=== PATIENT | female | born 1990 | race Caucasian/White ===

== ENCOUNTER 2016-12-05 07:03 | Inpatient (IN) | payer BC ==
[2016-12-05] MEDS ORDERED: Acetaminophen 325 MG Tab PO PRN (07:30)
[2016-12-05] MEDS ORDERED: fentaNYL 100 MCG/2 ML SDV IVPUSH PRN (07:30)
[2016-12-05] MEDS ORDERED: Calcium Carbonate 500 MG Tab.Chew PO PRN (07:30)
[2016-12-05] MEDS ORDERED: Ondansetron 4 MG/2 ML SDV IV PRN (07:30)
[2016-12-05] MEDS ORDERED: Sodium Chloride 0.9% 10 ML Syringe FLUSH PRN (07:30)
[2016-12-05] MEDS ORDERED: Misoprostol 50 MCG (1/2 of 100 MCG) Tab VAG ONE ×2 (07:32→12:12)
--- NOTE | 2016-12-05 07:56 | PCM.LDHP ---
L&D History of Present Illness - General Date of Service: 12/05/16 Admit Problem/Dx: Patient Status Order with Admit Dx/Problem 12/05/16 07:30 Patient Status [ADT] Routine Admission Diagnosis/Problem Admission Diagnosis/Problem Source of Information: Patient History Limitations: Reports: No Limitations - Related Data Allergies/Adverse Reactions: Allergies Allergy/AdvReac Type Severity Reaction Status Date / Time No Known Allergies Allergy Verified 11/30/16 05:48 Home Medications: Home Meds Prenat Vit Comb.10/Iron/Fa/Dha [Vitafol-OB + DHA] 1 each PO DAILY 11/30/16 [ History] Past Medical History : 2 Para: 1 Other OB/BYN History: SHANTHI-12/01/2016 Social & Family History - Tobacco Use Smoking Status *Q: Never Smoker Second Hand Smoke Exposure: No - Caffeine Use Caffeine Use: Reports: Coffee Other Caffeine Use: 1 cup per day - Recreational Drug Use Recreational Drug Use: No H&P Review of Systems - Review of Systems: Review Of Systems: See Below General: Reports: No Symptoms HEENT: Reports: No Symptoms Pulmonary: Reports: No Symptoms Cardiovascular: Reports: No Symptoms Gastrointestinal: Reports: No Symptoms Genitourinary: Reports: No Symptoms Musculoskeletal: Reports: No Symptoms Skin: Reports: No Symptoms Psychiatric: Reports: No Symptoms Neurological: Reports: No Symptoms Hematologic/Lymphatic: Reports: No Symptoms Immunologic: Reports: No Symptoms L&D Exam - Exam Exam: See Below - Vital Signs Weight: 75.75 kg - OB Specific Contraction Intensity: Mild Movement: Active Heart Tones: Present Heart Rate (FHR) Variability: Moderate (6-25 bmp) Presentation: Vertex Estimated Weight: 6.5lbs - Rodriguez Score Rodriguez Score Cervix Position: Posterior Rodriguez Score Consistency: Soft Rodriguez Score Effacement: 51-70% Rodriguez Score Dilation: 1-2 cm Rodriguez Score Infant's Station: -2 Rodriguze Score Total: 6 - Exam General: Alert, Oriented HEENT: PERRLA, Conjunctiva Clear, EACs Clear, EOMI, Hearing Intact, Mucosa Moist & [place], Nares Patent, Normal Nasal Septum, Posterior Pharynx Clear, TMs Clear Neck: Supple, Trachea Midline Lungs: Clear to Auscultation, Normal Respiratory Effort Cardiovascular: Regular Rate, Regular Rhythm GI/Abdominal Exam: Normal Bowel Sounds, Soft, Non-Tender, No Organomegaly, No Distention, No Abnormal Bruit, No Mass, Pelvis Stable Rectal Exam: Normal Exam, Normal Rectal Tone Genitourinary: Normal external exam, Normal bimanual exam, Normal speculum exam Back Exam: Normal Inspection, Full Range of Motion Extremities: Normal Inspection, Normal Range of Motion, Non-Tender, No Pedal Edema, Normal Capillary Refill Skin: Warm, Dry, Intact Neurological: Cranial Nerves Intact, Reflexes Equal Bilateral Psychiatric: Alert, Normal Affect, Normal Mood - Patient Data Lab Results Last 24 hrs: Laboratory Results - last 24 hr 12/05/16 12/05/16 12/05/16 Range/Units 07:15 07:15 07:19 WBC 10.6 (4.5-11.0) K/uL RBC 4.18 (3.30-5.50) M/uL Hgb 11.8 L (12.0-15.0) g/dL Hct 35.0 L (36.0-48.0) % MCV 84 (80-98) fL MCH 28 (27-31) pg MCHC 34 (32-36) % Plt Count 221 (150-400) K/uL Neut % (Auto) 73 H (36-66) % Lymph % (Auto) 20 L (24-44) % [place] % (Auto) 6 (2-6) % Eos % (Auto) 1 L (2-4) % Baso % (Auto) 0 (0-1) % Urine Color Yellow Urine Appearance Cloudy Urine pH 7.0 (4.5-8.0) Ur Specific [place] 1.015 (1.008-1.030) Urine Protein Negative (NEGATIVE) mg/dL Urine Glucose (UA) Normal (NEGATIVE) mg/dL Urine Ketones Negative (NEGATIVE) mg/dL Urine Occult Blood Negative (NEGATIVE) Urine Nitrite Negative (NEGATIVE) Urine Bilirubin Negative (NEGATIVE) Urine Urobilinogen Normal (NORMAL) mg/dL Ur Leukocyte Esterase Large (NEGATIVE) Urine RBC 0-5 (0-5) Urine WBC 5-10 H (0-5) Ur Epithelial Cells Many Amorphous Sediment Many Urine Bacteria Moderate Urine Mucus Rare Urine Opiates Screen Negative (NEGATIVE) Ur Oxycodone Screen Negative (NEGATIVE) Urine Methadone Screen Negative (NEGATIVE) Ur Propoxyphene Screen Negative (NEGATIVE) Ur Barbiturates Screen Negative (NEGATIVE) Ur Tricyclics Screen Negative (NEGATIVE) Ur Phencyclidine Scrn Negative (NEGATIVE) Ur Amphetamine Screen Negative (NEGATIVE) U Methamphetamines Scrn Negative (NEGATIVE) Urine MDMA Screen Negative (NEGATIVE) U Benzodiazepines Scrn Negative (NEGATIVE) U Cocaine Metab Screen Negative (NEGATIVE) U Marijuana (THC) Screen Negative (NEGATIVE) Result Diagrams: 12/05/16 07:19 - Problem List (1) SNOMED Code(s): 44377728 ICD Code: Z34.90 - ENCNTR FOR SUPRVSN OF NORMAL , UNSP, UNSP TRIMESTER Status: Acute Current Visit: Yes Qualifiers: Weeks of gestation: 40 weeks Qualified Code(s): Z3A.40 - 40 weeks gestation of (2) Elective induction of labor planned SNOMED Code(s): 230482737 ICD Code: [id number] - Status: Acute Current Visit: Yes Problem List Initiated/Reviewed/Updated: Yes Orders Last 24hrs: Active Orders 24 hr Category Date Time Status Patient Status [ADT] Routine ADT 12/05/16 07:30 Active Communication Order [RC] ASDIRECTED Care 12/05/16 07:30 Active Heart Tones [RC] PER UNIT ROUTINE Care 12/05/16 07:30 Active May Shower [RC] ASDIRECTED Care 12/05/16 07:30 Active Notify Provider Vital Signs [RC] PRN Care 12/05/16 07:30 Active Notify Provider [RC] PRN Care 12/05/16 07:30 Active OB Check [OM.PC] Click to Edit Care 12/05/16 07:11 Ordered Up ad [place] [RC] ASDIRECTED Care 12/05/16 07:30 Active Vital Signs [RC] PER UNIT ROUTINE Care 12/05/16 07:30 Active Regular Diet [DIET] Diet 12/05/16 Breakfast Active Acetaminophen [Tylenol] Med 12/05/16 07:30 Active 650 mg PO Q4H PRN Calcium Carbonate [Tums] Med 12/05/16 07:30 Active 1,000 mg PO Q2H PRN Ondansetron [Zofran] Med 12/05/16 07:30 Active 4 mg IV Q4H PRN Sodium Chloride 0.9% [Saline Flush] Med 12/05/16 07:30 Active 10 ml FLUSH ASDIRECTED PRN fentaNYL [Sublimaze] Med 12/05/16 07:30 Active 100 mcg IVPUSH Q1H PRN Saline Lock Insert [OM.PC] Routine Oth 12/05/16 07:30 Ordered Resuscitation Status Routine Resus Stat 12/05/16 07:30 Ordered Medication Orders Acetaminophen (Tylenol) 650 mg PO Q4H PRN PRN Reason: Pain (Mild 1-3) and fever Calcium Carbonate/Glycine (Tums) 1,000 mg PO Q2H PRN PRN Reason: Indigestion Fentanyl (Sublimaze) 100 mcg IVPUSH Q1H PRN PRN Reason: Pain (moderate 4-6) Ondansetron HCl (Zofran) 4 mg IV Q4H PRN PRN Reason: Nausea/Vomiting Sodium Chloride (Saline Flush) 10 ml FLUSH ASDIRECTED PRN PRN Reason: Keep Vein Open Assessment/Plan Comment:: 12/05/2016 25 yo at 40 4/7 gestational weeks here for an elective induction SVE-2-3/50/-2 Bishops Score-6 Cytotec 50mcg placed vaginally Plan- Monitor for active labor Up and about as tolerated Intermittent Monitoring Pain management per patient request Patient may eat regular diet Anticipate and plan for a vaginal delivery
[2016-12-05] MEDS ORDERED: Misoprostol 25 MCG (1/4 of 100 MCG) Tab ONE (12:13)
--- NOTE | 2016-12-05 12:26 | PCM.PNLD ---
Labor Progress Note - VS & Meds Vital Signs: Last Vital Signs Temp 37.1 C 12/05/16 08:15 Pulse 90 12/05/16 08:15 Resp 16 12/05/16 07:20 BP 122/85 12/05/16 08:15 Pulse Ox 94 L 12/05/16 07:20 Active Medications: Current Medications Acetaminophen (Tylenol) 650 mg PO Q4H PRN PRN Reason: Pain (Mild 1-3) and fever Last Admin: 12/05/16 07:55 Dose: 650 mg Calcium Carbonate/Glycine (Tums) 1,000 mg PO Q2H PRN PRN Reason: Indigestion Fentanyl (Sublimaze) 100 mcg IVPUSH Q1H PRN PRN Reason: Pain (moderate 4-6) Misoprostol (Cytotec) 25 mcg VAG ONETIME ONE Stop: 12/05/16 12:13 Ondansetron HCl (Zofran) 4 mg IV Q4H PRN PRN Reason: Nausea/Vomiting Sodium Chloride (Saline Flush) 10 ml FLUSH ASDIRECTED PRN PRN Reason: Keep Vein Open Discontinued Medications Misoprostol (Cytotec) 50 mcg VAG ONETIME ONE Stop: 12/05/16 07:33 Last Admin: 12/05/16 07:45 Dose: 50 mcg Misoprostol (Cytotec) Confirm Administered Dose 25 mcg .ROUTE .STK-MED ONE Stop: 12/05/16 12:14 Last Admin: 12/05/16 12:18 Dose: Not Given - Uterine Contractions Uterine Monitoring Mode: External [place] Contraction Frequency (min): 2 Contraction Duration (sec): 60-120 Contraction Intensity: Moderate Uterine Resting Tone: Soft - Monitoring Heart Rate (FHR) Variability: Moderate (6-25 bmp) - Vaginal Exam Dilation (cm): 3 Effacement (Percent): 60 Station: 0 Cervical Position: Anterior Sterile Vaginal Exam Performed By: Bridgette Rojas Vaginal Exam Comment: Cytotec 25 mcg vaginally - Labor Progress (Free Text) Labor Progress: 12/05/2016 Patient progressing nicely. SVE-60/0 and now anterior Cytotec 25mcg placed vaginally Patient tolerating contractions with position change and breathing Plan- Continue to monitor for active labor Continue to monitor FHTs Continue up ad drew Pain management per patient request Anticipate and plan for a vaginal delivery
--- NOTE | 2016-12-05 12:36 | ANES ---
DATE OF SERVICE: 12/05/2016 INDICATIONS: This 25-year-old is in labor and I have been asked to do labor epidural. I discussed the risks and benefits to the patient. She signed an informed consent. DESCRIPTION OF PROCEDURE: She was placed in a sitting position on the edge of the bed. Her back was prepped with Betadine x3. At approximately L4-L5, I gave her a 2 mL of skin wheal of 1% Xylocaine and another 2 to 3 mL into the deeper tissue. I then placed a 17-gauge Tuohy needle into the epidural space at that level using a loss of resistance technique. I was unable to aspirate blood, fluid, or air from the epidural and I gave her a 6 mL bolus of 5 mL of 1.5% Xylocaine with epinephrine and 2 mL of preservative-free fentanyl. I then threaded an epidural catheter approximately 3 to 4 cm into the epidural space and removed the needle over the catheter. The catheter was brought up over left shoulder and taped securely in place. She was then placed on a ropivacaine infusion of 0.2% at 12 mL. This is all reviewed with the nurse in the room. The patient tolerated the procedure well. Currently, her vital signs are stable. Her color is pink. She is alert, oriented, shows no signs of complications. Anesthesia service will be called if they need further assistance. NAME OF PROCEDURE: Labor epidural. Rick Jeffries CRNA /[id number]
[2016-12-05] MEDS ORDERED: Ropivacaine 100 ML ONE (13:34)
[2016-12-05] MEDS ORDERED: fentaNYL 100 MCG/2 ML SDV ONE (13:34)
[2016-12-05] MEDS ORDERED: Lactated Ringers 1,000 ML IV ONE ×2 (16:36→17:45)
[2016-12-05] MEDS ORDERED: Lidocaine 1% 50 ML MDV ONE (16:46)
--- NOTE | 2016-12-05 16:46 | PCM.PNLD ---
Labor Progress Note - VS & Meds Vital Signs: Last Vital Signs Temp 37.2 C 12/05/16 12:15 Pulse 84 12/05/16 12:15 Resp 16 12/05/16 11:30 BP 131/83 12/05/16 12:15 Pulse Ox 94 L 12/05/16 07:20 Active Medications: Current Medications Acetaminophen (Tylenol) 650 mg PO Q4H PRN PRN Reason: Pain (Mild 1-3) and fever Last Admin: 12/05/16 07:55 Dose: 650 mg Calcium Carbonate/Glycine (Tums) 1,000 mg PO Q2H PRN PRN Reason: Indigestion Fentanyl (Sublimaze) 100 mcg IVPUSH Q1H PRN PRN Reason: Pain (moderate 4-6) Last Admin: 12/05/16 15:08 Dose: 50 mcg Lactated Ringer's (Ringers, Lactated) 1,000 mls @ 999 mls/hr IV .BOLUS ONE Stop: 12/05/16 17:36 Oxytocin/Sodium Chloride (Pitocin In Ns 20 Units/1,000 Ml) 20 unit in 1,000 mls @ 6 mls/hr IV TITRATE ANDRADE; 2 MUNITS/MIN PRN Reason: Protocol Lidocaine HCl (Xylocaine 1%) 100 ml INJECT ONETIME ONE Stop: 12/05/16 18:01 Ondansetron HCl (Zofran) 4 mg IV Q4H PRN PRN Reason: Nausea/Vomiting Sodium Chloride (Saline Flush) 10 ml FLUSH ASDIRECTED PRN PRN Reason: Keep Vein Open Discontinued Medications Fentanyl (Sublimaze) Confirm Administered Dose 100 mcg .ROUTE .STK-MED ONE Stop: 12/05/16 13:35 Oxytocin/Sodium Chloride (Pitocin In Ns 20 Units/1,000 Ml) 20 unit in 1,000 mls @ 2,997 mls/hr IV ONETIME ONE; 999 MUNITS/MIN PRN Reason: Protocol Stop: 12/05/16 12:41 Ropivacaine (Naropin 0.2%) Confirm Administered Dose 100 mls @ as directed .ROUTE .STK-MED ONE Stop: 12/05/16 13:35 Misoprostol (Cytotec) 50 mcg VAG ONETIME ONE Stop: 12/05/16 07:33 Last Admin: 12/05/16 07:45 Dose: 50 mcg Misoprostol (Cytotec) 25 mcg VAG ONETIME ONE Stop: 12/05/16 12:13 Last Admin: 12/05/16 12:15 Dose: 25 mcg Misoprostol (Cytotec) Confirm Administered Dose 25 mcg .ROUTE .STK-MED ONE Stop: 12/05/16 12:14 Last Admin: 12/05/16 12:18 Dose: Not Given - Uterine Contractions Uterine Monitoring Mode: External [place] Contraction Frequency (min): 1-2.5 Contraction Duration (sec): 70-80 Contraction Intensity: Moderate to Strong Uterine Resting Tone: Soft - Monitoring Heart Rate (FHR) Variability: Moderate (6-25 bmp) Accelerations: Present, 15x15 Strip Review: Category I - Vaginal Exam Dilation (cm): 4 Effacement (Percent): 60 Station: 0 Cervical Position: Anterior Sterile Vaginal Exam Performed By: Bridgette Rojas Vaginal Exam Comment: Fentanyl - Labor Progress (Free Text) Labor Progress: 12/05/2016 Patient alyce regularly SVE-4/60/0 Patient more uncomfortable and would like an epidural FHTs category one Plan- Continue monitor for more active labor Continue to monitor FHTs Patient may have an epidural Will start Pitocin per protocol Plan on AROM once comfortable Anticipate and plan for a vaginal delivery
[2016-12-05] MEDS ORDERED: ePHEDrine 50 MG/ML SDV ONE (17:12)
[2016-12-05] MEDS ORDERED: Naloxone 0.4 MG/ML SDV IVPUSH PRN (17:33)
[2016-12-05] MEDS ORDERED: diphenhydrAMINE 50 MG/ML SDV IVPUSH PRN (17:33)
[2016-12-05] MEDS ORDERED: ePHEDrine 50 MG/ML SDV IVPUSH PRN (17:33)
[2016-12-05] MEDS ORDERED: Lidocaine 1% 50 ML MDV INJECT ONE (18:00)
[2016-12-05] MEDS ORDERED: Lanolin 100% Cream 40 GM Tube TOP PRN (21:31)
[2016-12-05] MEDS ORDERED: Witch Hazel Medicated Pads 100/Jar TOP PRN (21:31)
[2016-12-05] MEDS ORDERED: Acetaminophen 325 MG Tab, 50 Tab Bulk Bottle PO PRN (21:31)
[2016-12-05] MEDS ORDERED: Acetaminophen/HYDROcodone 325-5 MG Tab PO PRN (21:31)
[2016-12-05] MEDS ORDERED: Benzocaine 20% Top Spray 56 GM Bottle TOP PRN (21:31)
[2016-12-05] MEDS ORDERED: Ibuprofen 200 MG Tab, 24 Tab Bulk Bottle PO PRN (21:31)
--- NOTE | 2016-12-05 21:46 | PCM.DEL ---
L & D Note - General Info Date of Service: 12/05/16 Mother's Due Date: 12/01/16 - Delivery Note Labor: Augmented by Oxytocin Cervical Ripening Method: Misoprostil Delivery Outcome: Livebirth Infant Delivery Method: Spontaneous Vaginal Delivery-Single Delivery Mode: Vacuum Extraction (times one pull with release) Presentation: Right Occiput Transverse (ROT) Nuchal Cord: None Anesthesia Type: Epidural Amniotic Fluid Description: Clear Episiotomy Type: None Laceration: 1st Degree, Perineal Suture type: Chromic Suture size: 3-0 Placenta: Intact, Spontaneous Cord: 3 Vessels Resuscitation Needed: No : Bulb Syringe, Stimulated, Warmed, [place] Used Score 1 min: 9 Score 5 min: 9 Score 10 min: 9 Second Stage Interventions: Reports: Encouragement Given, Pushing Effectively Delivery Comments (Free Text/Narrative):: 12/05/2016 25 yo @ 40 4/7 gestational weeks delivered a viable male infant vaginally with a one pull assist of a vacuum in ROT position at 2101 on 12/05/2016. APGARS , weight-7lbs 4.7oz, length-19.4inches, infant placed on mother abdomen on prewarmed blanket, infant stimulated, dried, bulb suctioned and began to cry vigorously and pink in color. Infants cord then double clamped and cut by provider. Placenta spontaneous, intact, with a 3 vessel cord. EBL- 300ml. Small first degree perineal laceration where old episiotomy scar was- repaired in usual fashion. No lacerations noted of the cervix, labia, vagina, or rectum. Infant now skin to skin with mother and both in stable condition. Vacuum Extractor Progress Note - Alternative Labor Strategies Considered Alternative Labor Strategies Considered:: Reports: Yes Strategies Considered:: Reports: Contraction Intensity Adequate, Position Changes Used to Facilitate Rotation & Descent, Empty Bladder, Rest Indications Considered:: Reports: Yes Indications:: Reports: Suspicion of Immediate or Potential Compromise Time Out:: Reports: Yes - Patient Prepared Patient Prepared:: Reports: Yes Informed Consent:: Reports: Yes Risks: Reports: Yes Risks Include:: Reports: Laceration, Shoulder Dystocia, Maternal Injury Anesthesia/Analgesia Adequate:: Reports: Yes - Probability of Success High Probability of Success:: Reports: Yes Weight Estimated:: Reports: AGA Patient Diabetic:: Reports: No Pelvis Adequate:: Reports: Yes Asynclitic:: Reports: No - Application Time Maximum Application Time & Number of Pop-Offs Predetermined:: Reports: Yes Vacuum Extraction: Successful (only one pull with release) - Exit Strategy Exit strategy available:: Reports: Yes and resuscitation teams readily available:: Reports: Yes - General Info Date of Service: 12/05/16 Admission Dx/Problem (Free Text): Patient Status Order with Admit Dx/Problem 12/05/16 07:30 Patient Status [ADT] Routine Admission Diagnosis/Problem Admission Diagnosis/Problem Functional Status: Reports: Pain Controlled - Review of Systems General: Reports: No Symptoms HEENT: Reports: No Symptoms Pulmonary: Reports: No Symptoms Cardiovascular: Reports: No Symptoms Gastrointestinal: Reports: No Symptoms Genitourinary: Reports: No Symptoms Musculoskeletal: Reports: No Symptoms Skin: Reports: No Symptoms Neurological: Reports: No Symptoms Psychiatric: Reports: No Symptoms - Patient Data Vitals - Most Recent: Last Vital Signs Temp 36.8 C 12/05/16 17:40 Pulse 80 12/05/16 18:45 Resp 16 12/05/16 11:30 BP 128/82 12/05/16 18:45 Pulse Ox 94 L 12/05/16 07:20 Weight - Most Recent: 75.75 kg Lab Results Last 24 Hours: Laboratory Results - last 24 hr 12/05/16 12/05/16 12/05/16 Range/Units 07:15 07:15 07:19 WBC 10.6 (4.5-11.0) K/uL RBC 4.18 (3.30-5.50) M/uL Hgb 11.8 L (12.0-15.0) g/dL Hct 35.0 L (36.0-48.0) % MCV 84 (80-98) fL MCH 28 (27-31) pg MCHC 34 (32-36) % Plt Count 221 (150-400) K/uL Neut % (Auto) 73 H (36-66) % Lymph % (Auto) 20 L (24-44) % [place] % (Auto) 6 (2-6) % Eos % (Auto) 1 L (2-4) % Baso % (Auto) 0 (0-1) % Sodium (140-148) mmol/L Potassium (3.6-5.2) mmol/L Chloride (100-108) mmol/L Carbon Dioxide (21-32) mmol/L Anion Gap (5.0-14.0) mmol/L BUN (7-18) mg/dL Creatinine (0.6-1.0) mg/dL Est Cr Clr Drug Dosing mL/min Estimated GFR (MDRD) (>60) Glucose (74-106) mg/dL Calcium (8.5-10.1) mg/dL Total Bilirubin (0.2-1.0) mg/dL AST (15-37) U/L ALT (12-78) U/L Alkaline Phosphatase (46-116) U/L Total Protein (6.4-8.2) g/dL Albumin (3.4-5.0) g/dL Globulin (2.3-3.5) g/dL Albumin/Globulin Ratio (1.2-2.2) Urine Color Yellow Urine Appearance Cloudy Urine pH 7.0 (4.5-8.0) Ur Specific [place] 1.015 (1.008-1.030) Urine Protein Negative (NEGATIVE) mg/dL Urine Glucose (UA) Normal (NEGATIVE) mg/dL Urine Ketones Negative (NEGATIVE) mg/dL Urine Occult Blood Negative (NEGATIVE) Urine Nitrite Negative (NEGATIVE) Urine Bilirubin Negative (NEGATIVE) Urine Urobilinogen Normal (NORMAL) mg/dL Ur Leukocyte Esterase Large (NEGATIVE) Urine RBC 0-5 (0-5) Urine WBC 5-10 H (0-5) Ur Epithelial Cells Many Amorphous Sediment Many Urine Bacteria Moderate Urine Mucus Rare Urine Opiates Screen Negative (NEGATIVE) Ur Oxycodone Screen Negative (NEGATIVE) Urine Methadone Screen Negative (NEGATIVE) Ur Propoxyphene Screen Negative (NEGATIVE) Ur Barbiturates Screen Negative (NEGATIVE) Ur Tricyclics Screen Negative (NEGATIVE) Ur Phencyclidine Scrn Negative (NEGATIVE) Ur Amphetamine Screen Negative (NEGATIVE) U Methamphetamines Scrn Negative (NEGATIVE) Urine MDMA Screen Negative (NEGATIVE) U Benzodiazepines Scrn Negative (NEGATIVE) U Cocaine Metab Screen Negative (NEGATIVE) U Marijuana (THC) Screen Negative (NEGATIVE) 12/05/16 Range/Units 07:19 WBC (4.5-11.0) K/uL RBC (3.30-5.50) M/uL Hgb (12.0-15.0) g/dL Hct (36.0-48.0) % MCV (80-98) fL MCH (27-31) pg MCHC (32-36) % Plt Count (150-400) K/uL Neut % (Auto) (36-66) % Lymph % (Auto) (24-44) % [place] % (Auto) (2-6) % Eos % (Auto) (2-4) % Baso % (Auto) (0-1) % Sodium 137 L (140-148) mmol/L Potassium 3.5 L (3.6-5.2) mmol/L Chloride 104 (100-108) mmol/L Carbon Dioxide 25 (21-32) mmol/L Anion Gap 11.5 (5.0-14.0) mmol/L BUN 9 (7-18) mg/dL Creatinine 0.7 (0.6-1.0) mg/dL Est Cr Clr Drug Dosing 117.39 mL/min Estimated GFR (MDRD) > 60 (>60) Glucose 90 (74-106) mg/dL Calcium 8.4 L (8.5-10.1) mg/dL Total Bilirubin 0.3 (0.2-1.0) mg/dL AST 19 (15-37) U/L ALT 15 (12-78) U/L Alkaline Phosphatase 96 (46-116) U/L Total Protein 6.7 (6.4-8.2) g/dL Albumin 2.7 L (3.4-5.0) g/dL Globulin 4.0 H (2.3-3.5) g/dL Albumin/Globulin Ratio 0.7 L (1.2-2.2) Urine Color Urine Appearance Urine pH (4.5-8.0) Ur Specific [place] (1.008-1.030) Urine Protein (NEGATIVE) mg/dL Urine Glucose (UA) (NEGATIVE) mg/dL Urine Ketones (NEGATIVE) mg/dL Urine Occult Blood (NEGATIVE) Urine Nitrite (NEGATIVE) Urine Bilirubin (NEGATIVE) Urine Urobilinogen (NORMAL) mg/dL Ur Leukocyte Esterase (NEGATIVE) Urine RBC (0-5) Urine WBC (0-5) Ur Epithelial Cells Amorphous Sediment Urine Bacteria Urine Mucus Urine Opiates Screen (NEGATIVE) Ur Oxycodone Screen (NEGATIVE) Urine Methadone Screen (NEGATIVE) Ur Propoxyphene Screen (NEGATIVE) Ur Barbiturates Screen (NEGATIVE) Ur Tricyclics Screen (NEGATIVE) Ur Phencyclidine Scrn (NEGATIVE) Ur Amphetamine Screen (NEGATIVE) U Methamphetamines Scrn (NEGATIVE) Urine MDMA Screen (NEGATIVE) U Benzodiazepines Scrn (NEGATIVE) U Cocaine Metab Screen (NEGATIVE) U Marijuana (THC) Screen (NEGATIVE) Med Orders - Current: Current Medications Acetaminophen (Tylenol) 650 mg PO Q4H PRN PRN Reason: Pain (Mild 1-3) and fever Last Admin: 12/05/16 07:55 Dose: 650 mg Acetaminophen (Tylenol Bulk Bottle) 325 mg PO Q4H PRN PRN Reason: Pain Hydrocodone Bitart/Acetaminophen ([place] 325-5 Mg) 1 tab PO Q4H PRN PRN Reason: Pain (moderate 4-6) Benzocaine (Akkb-H-Lxjvvwa 20% [place]) 0 gm TOP Q4H PRN PRN Reason: Perineal Comfort Measure Calcium Carbonate/Glycine (Tums) 1,000 mg PO Q2H PRN PRN Reason: Indigestion Diphenhydramine HCl (Benadryl) 50 mg IVPUSH Q6H PRN PRN Reason: ITCHING Emollient Ointment (Lansinoh Hpa) 1 gm TOP ASDIRECTED PRN PRN Reason: Sore Nipples Ephedrine Sulfate (Ephedrine Sulfate) 5 - 10 mg IVPUSH ASDIRECTED PRN PRN Reason: IF SYSTOLIC BP LESS THAN 100 Fentanyl (Sublimaze) 100 mcg IVPUSH Q1H PRN PRN Reason: Pain (moderate 4-6) Last Admin: 12/05/16 15:08 Dose: 50 mcg Oxytocin/Sodium Chloride (Pitocin In Ns 20 Units/1,000 Ml) 20 unit in 1,000 mls @ 6 mls/hr IV TITRATE ANDRADE; 2 MUNITS/MIN PRN Reason: Protocol Last Titration: 12/05/16 18:18 Dose: 1 munits/min, 3 mls/hr Ibuprofen (Motrin Bulk Bottle) 600 mg PO Q6H PRN PRN Reason: Pain Naloxone HCl (Narcan) 0.1 mg IVPUSH Q5M PRN PRN Reason: IF RESP RATE LESS THAN 6 Ondansetron HCl (Zofran) 4 mg IV Q4H PRN PRN Reason: Nausea/Vomiting Sodium Chloride (Saline Flush) 10 ml FLUSH ASDIRECTED PRN PRN Reason: Keep Vein Open [place] (Tucks) 1 pad TOP ASDIRECTED PRN PRN Reason: Hemorrhoids Discontinued Medications Ephedrine Sulfate (Ephedrine Sulfate) Confirm Administered Dose 50 mg .ROUTE .STK-MED ONE Stop: 12/05/16 17:13 Last Admin: 12/05/16 18:18 Dose: Not Given Fentanyl (Sublimaze) Confirm Administered Dose 100 mcg .ROUTE .STK-MED ONE Stop: 12/05/16 13:35 Oxytocin/Sodium Chloride (Pitocin In Ns 20 Units/1,000 Ml) 20 unit in 1,000 mls @ 2,997 mls/hr IV ONETIME ONE; 999 MUNITS/MIN PRN Reason: Protocol Stop: 12/05/16 12:41 Ropivacaine (Naropin 0.2%) Confirm Administered Dose 100 mls @ as directed .ROUTE .STK-MED ONE Stop: 12/05/16 13:35 Lactated Ringer's (Ringers, Lactated) 1,000 mls @ 999 mls/hr IV .BOLUS ONE Stop: 12/05/16 17:36 Last Admin: 12/05/16 16:35 Dose: 999 mls/hr Lidocaine HCl (Xylocaine 1%) 100 ml INJECT ONETIME ONE Stop: 12/05/16 18:01 Lidocaine HCl (Xylocaine 1%) Confirm Administered Dose 100 ml .ROUTE .STK-MED ONE Stop: 12/05/16 16:47 Last Admin: 12/05/16 17:18 Dose: Not Given Misoprostol (Cytotec) 50 mcg VAG ONETIME ONE Stop: 12/05/16 07:33 Last Admin: 12/05/16 07:45 Dose: 50 mcg Misoprostol (Cytotec) 25 mcg VAG ONETIME ONE Stop: 12/05/16 12:13 Last Admin: 12/05/16 12:15 Dose: 25 mcg Misoprostol (Cytotec) Confirm Administered Dose 25 mcg .ROUTE .STK-MED ONE Stop: 12/05/16 12:14 Last Admin: 12/05/16 12:18 Dose: Not Given - Exam General: Alert, Oriented HEENT: Pupils Equal, Pupils Reactive, EOMI, Mucous Membr. Moist/[place] Neck: Supple Lungs: Clear to Auscultation, Normal Respiratory Effort Cardiovascular: Regular Rate, Regular Rhythm GI/Abdominal Exam: Normal Bowel Sounds, Soft, Non-Tender, No Organomegaly, No Distention, No Abnormal Bruit, No Mass, Pelvis Stable (Female) Exam: Normal External Exam, Normal Speculum Exam, Normal Bimanual Exam Back Exam: Normal Inspection, Full Range of Motion Extremities: Normal Inspection, Normal Range of Motion, Non-Tender, No Pedal Edema, Normal Capillary Refill Skin: Warm, Dry, Intact Wound/Incisions: Healing Well Neurological: No New Focal Deficit Psy/Mental Status: Alert, Normal Affect, Normal Mood - Problem List & Annotations (1) SNOMED Code(s): 72456782 Code(s): Z34.90 - ENCNTR FOR SUPRVSN OF NORMAL , UNSP, UNSP TRIMESTER Status: Acute Current Visit: Yes Qualifiers: Weeks of gestation: 40 weeks Qualified Code(s): Z3A.40 - 40 weeks gestation of (2) Elective induction of labor planned SNOMED Code(s): 375542408 Code(s): DFW9516 - Status: Acute Current Visit: Yes (3) Perineal laceration SNOMED Code(s): 215095305 Code(s): S31.41XA - LACERATION W/O FOREIGN BODY OF VAGINA AND VULVA, INIT ENCNTR Status: Acute Current Visit: Yes (4) Vacuum extractor delivery, delivered SNOMED Code(s): 564609804 Code(s): O66.5 - ATTEMPTED APPLICATION OF VACUUM EXTRACTOR AND FORCEPS Status: Acute Current Visit: Yes - Problem List Review Problem List Initiated/Reviewed/Updated: Yes - My Orders Last 24 Hours: My Active Orders 12/05/16 07:30 Patient Status [ADT] Routine Communication Order [RC] ASDIRECTED May Shower [RC] ASDIRECTED Notify Provider Vital Signs [RC] PRN Notify Provider [RC] PRN Up ad [place] [RC] ASDIRECTED Vital Signs [RC] PER UNIT ROUTINE Acetaminophen [Tylenol] 650 mg PO Q4H PRN Calcium Carbonate [Tums] 1,000 mg PO Q2H PRN Ondansetron [Zofran] 4 mg IV Q4H PRN Sodium Chloride 0.9% [Saline Flush] 10 ml FLUSH ASDIRECTED PRN fentaNYL [Sublimaze] 100 mcg IVPUSH Q1H PRN Saline Lock Insert [OM.PC] Routine Resuscitation Status Routine 12/05/16 09:58 Ambulate [RC] PER UNIT ROUTINE VTE/DVT Education [RC] Click to Edit DVT/VTE Prophylaxis Reflex [OM.PC] Routine 12/05/16 16:36 PCEA Epidural [RC] ASDIRECTED Epidural Catheter Management [OM.PC] Routine 12/05/16 16:45 Oxytocin/Normal Saline [Pitocin in NS 20 Units/1,000 ML] 20 unit in 1,000 ml IV TITRATE 12/05/16 17:33 Urinary Catheter Assessment [RC] Q12HR Naloxone [Narcan] 0.1 mg IVPUSH Q5M PRN diphenhydrAMINE [Benadryl] 50 mg IVPUSH Q6H PRN ePHEDrine [ePHEDrine Sulfate] 5 - 10 mg IVPUSH ASDIRECTED PRN 12/05/16 17:45 Urinary Catheter Insertion [Insert Urinary Catheter] [OM.PC] Q24H 12/05/16 21:31 Patient Status [ADT] Routine Vital Signs [RC] PFP Acetaminophen [Tylenol Bulk Bottle] 325 mg PO Q4H PRN Acetaminophen/HYDROcodone [[place] 325-5 MG] 1 tab PO Q4H PRN Benzocaine [Vciu-O-[place] 20% [place]] See Dose Instructions TOP Q4H PRN Ibuprofen [Motrin Bulk Bottle] 600 mg PO Q6H PRN Lanolin [Lansinoh HPA] 1 gm TOP ASDIRECTED PRN Witch Arianne [Tucks] 1 pad TOP ASDIRECTED PRN Assess Lochia [WOMSER] Per Unit Routine Assess Uterine Involution [WOMSER] Per Unit Routine 12/05/16 21:32 Perineal Care [OM.PC] Per Unit Routine 12/05/16 Breakfast Regular Diet [DIET] 12/06/16 06:00 CBC WITH AUTO DIFF [HEME] Routine - Assessment Assessment:: 12/05/2016 25 yo G2 now P2 at 40 4/7 gestational weeks with vacuum assist times one, without complications Small 1st degree perineal laceration Labs-GBS negative, B positive, RPR nonreactive, Hep B negative, HIV negative, Rubella Immune - Plan Plan:: 12/05/2016 25 yo at 40 4/7 gestational weeks here for an elective induction SVE-2-/-2 Bishops Score-6 Cytotec 50mcg placed vaginally Plan- Monitor for active labor Up and about as tolerated Intermittent Monitoring Pain management per patient request Patient may eat regular diet Anticipate and plan for a vaginal delivery 12/05/2016 Routine cares Encourage and support Monitor fundus and bleeding Keflex 500mg BID for three days for UTI Plan discharge in 24-48hrs
[2016-12-05] MEDS: Cephalexin 250 MG Cap PO SCH (23:05)
[2016-12-06] MEDS ORDERED: Acetaminophen 325 MG Tab, 50 Tab Bulk Bottle PO PRN (07:23)
--- NOTE | 2016-12-06 07:56 | PCM.PNPP ---
- General Info Date of Service: 12/06/16 Admission Dx/Problem (Free Text): Patient Status Order with Admit Dx/Problem 12/05/16 07:30 Patient Status [ADT] Routine Admission Diagnosis/Problem Admission Diagnosis/Problem Functional Status: Reports: Pain Controlled - Review of Systems General: Reports: No Symptoms HEENT: Reports: No Symptoms Pulmonary: Reports: No Symptoms Cardiovascular: Reports: No Symptoms Gastrointestinal: Reports: No Symptoms Genitourinary: Reports: No Symptoms Musculoskeletal: Reports: No Symptoms Skin: Reports: No Symptoms Neurological: Reports: No Symptoms Psychiatric: Reports: No Symptoms - Patient Data Vital Signs - Most Recent: Last Vital Signs Temp 37.2 C 12/06/16 04:55 Pulse 78 12/06/16 04:55 Resp 18 12/06/16 04:55 BP 138/80 12/06/16 04:55 Pulse Ox 98 12/06/16 04:55 Weight - Most Recent: 75.75 kg I&O - Last 24 Hours: Intake & Output 12/05/16 12/06/16 12/06/16 22:59 06:59 14:59 Intake Total 1999 Balance 1999 Lab Results - Last 24 Hours: Laboratory Results - last 24 hr 12/05/16 12/06/16 Range/Units 07:19 06:25 WBC 14.6 H (4.5-11.0) K/uL RBC 3.92 (3.30-5.50) M/uL Hgb 11.2 L (12.0-15.0) g/dL Hct 32.9 L (36.0-48.0) % MCV 84 (80-98) fL MCH 29 (27-31) pg MCHC 34 (32-36) % Plt Count 192 (150-400) K/uL Neut % (Auto) 79 H (36-66) % Lymph % (Auto) 13 L (24-44) % [place] % (Auto) 7 H (2-6) % Eos % (Auto) 1 L (2-4) % Baso % (Auto) 0 (0-1) % Sodium 137 L (140-148) mmol/L Potassium 3.5 L (3.6-5.2) mmol/L Chloride 104 (100-108) mmol/L Carbon Dioxide 25 (21-32) mmol/L Anion Gap 11.5 (5.0-14.0) mmol/L BUN 9 (7-18) mg/dL Creatinine 0.7 (0.6-1.0) mg/dL Est Cr Clr Drug Dosing 117.39 mL/min Estimated GFR (MDRD) > 60 (>60) Glucose 90 (74-106) mg/dL Calcium 8.4 L (8.5-10.1) mg/dL Total Bilirubin 0.3 (0.2-1.0) mg/dL AST 19 (15-37) U/L ALT 15 (12-78) U/L Alkaline Phosphatase 96 (46-116) U/L Total Protein 6.7 (6.4-8.2) g/dL Albumin 2.7 L (3.4-5.0) g/dL Globulin 4.0 H (2.3-3.5) g/dL Albumin/Globulin Ratio 0.7 L (1.2-2.2) Med Orders - Current: Current Medications Acetaminophen (Tylenol Bulk Bottle) 0 mg PO Q4H PRN PRN Reason: Pain Hydrocodone Bitart/Acetaminophen ([place] 325-5 Mg) 1 tab PO Q4H PRN PRN Reason: Pain (moderate 4-6) Last Admin: 12/06/16 00:56 Dose: 1 tab Benzocaine (Bqpt-Q-Qtqlfox 20% [place]) 0 gm TOP Q4H PRN PRN Reason: Perineal Comfort Measure Last Admin: 12/05/16 22:54 Dose: 1 can Calcium Carbonate/Glycine (Tums) 1,000 mg PO Q2H PRN PRN Reason: Indigestion Cephalexin (Keflex) 500 mg PO Q12H ANDRADE Stop: 12/08/16 22:00 Last Admin: 12/05/16 23:05 Dose: 500 mg Diphenhydramine HCl (Benadryl) 50 mg IVPUSH Q6H PRN PRN Reason: ITCHING Emollient Ointment (Lansinoh Hpa) 1 gm TOP ASDIRECTED PRN PRN Reason: Sore Nipples Last Admin: 12/05/16 22:54 Dose: 1 tube Ibuprofen (Motrin Bulk Bottle) 600 mg PO Q6H PRN PRN Reason: Pain Last Admin: 12/05/16 22:51 Dose: 1 bottle Naloxone HCl (Narcan) 0.1 mg IVPUSH Q5M PRN PRN Reason: IF RESP RATE LESS THAN 6 Ondansetron HCl (Zofran) 4 mg IV Q4H PRN PRN Reason: Nausea/Vomiting Sodium Chloride (Saline Flush) 10 ml FLUSH ASDIRECTED PRN PRN Reason: Keep Vein Open [place] (Tucks) 1 pad TOP ASDIRECTED PRN PRN Reason: Hemorrhoids Last Admin: 12/05/16 22:52 Dose: 1 canister Discontinued Medications Acetaminophen (Tylenol) 650 mg PO Q4H PRN PRN Reason: Pain (Mild 1-3) and fever Last Admin: 12/05/16 07:55 Dose: 650 mg Acetaminophen (Tylenol Bulk Bottle) 325 mg PO Q4H PRN PRN Reason: Pain Last Admin: 12/05/16 22:52 Dose: 1 bottle Ephedrine Sulfate (Ephedrine Sulfate) Confirm Administered Dose 50 mg .ROUTE .STK-MED ONE Stop: 12/05/16 17:13 Last Admin: 12/05/16 18:18 Dose: Not Given Ephedrine Sulfate (Ephedrine Sulfate) 5 - 10 mg IVPUSH ASDIRECTED PRN PRN Reason: IF SYSTOLIC BP LESS THAN 100 Fentanyl (Sublimaze) 100 mcg IVPUSH Q1H PRN PRN Reason: Pain (moderate 4-6) Last Admin: 12/05/16 15:08 Dose: 50 mcg Fentanyl (Sublimaze) Confirm Administered Dose 100 mcg .ROUTE .STK-MED ONE Stop: 12/05/16 13:35 Oxytocin/Sodium Chloride (Pitocin In Ns 20 Units/1,000 Ml) 20 unit in 1,000 mls @ 2,997 mls/hr IV ONETIME ONE; 999 MUNITS/MIN PRN Reason: Protocol Stop: 12/05/16 12:41 Last Admin: 12/06/16 04:51 Dose: Not Given Ropivacaine (Naropin 0.2%) Confirm Administered Dose 100 mls @ as directed .ROUTE .STK-MED ONE Stop: 12/05/16 13:35 Lactated Ringer's (Ringers, Lactated) 1,000 mls @ 999 mls/hr IV .BOLUS ONE Stop: 12/05/16 17:36 Last Admin: 12/05/16 16:35 Dose: 999 mls/hr Oxytocin/Sodium Chloride (Pitocin In Ns 20 Units/1,000 Ml) 20 unit in 1,000 mls @ 6 mls/hr IV TITRATE ANDRADE; 2 MUNITS/MIN PRN Reason: Protocol Last Titration: 12/05/16 23:40 Dose: Infused Lidocaine HCl (Xylocaine 1%) 100 ml INJECT ONETIME ONE Stop: 12/05/16 18:01 Last Admin: 12/05/16 23:19 Dose: Not Given Lidocaine HCl (Xylocaine 1%) Confirm Administered Dose 100 ml .ROUTE .STK-MED ONE Stop: 12/05/16 16:47 Last Admin: 12/05/16 17:18 Dose: Not Given Misoprostol (Cytotec) 50 mcg VAG ONETIME ONE Stop: 12/05/16 07:33 Last Admin: 12/05/16 07:45 Dose: 50 mcg Misoprostol (Cytotec) 25 mcg VAG ONETIME ONE Stop: 12/05/16 12:13 Last Admin: 12/05/16 12:15 Dose: 25 mcg Misoprostol (Cytotec) Confirm Administered Dose 25 mcg .ROUTE .STK-MED ONE Stop: 12/05/16 12:14 Last Admin: 12/05/16 12:18 Dose: Not Given - Infant Interaction Infant Disposition, : in Room with Family Interaction: Holding Infant Feeding: Breastfed ; Nursed Well, Continues to Breastfeed Support Person: - Recovery Exam Fundal Tone: Firm Fundal Level: 1 Fingerbreadths Below Umbilicus Fundal Placement: Midline Lochia Amount: Moderate Lochia Color: Rubra/Red Perineum Description: Edematous Bladder Status: Nonpalpable Urinary Elimination: Other (see below) Other Urinary Elimination, : due to void - Exam General: Alert, Oriented HEENT: Pupils Equal Neck: Supple Lungs: Clear to Auscultation, Normal Respiratory Effort Cardiovascular: Regular Rate, Regular Rhythm GI/Abdominal Exam: Normal Bowel Sounds, Soft, Non-Tender, No Organomegaly, No Distention, No Abnormal Bruit, No Mass, Pelvis Stable Extremities: Normal Inspection, Normal Range of Motion, Non-Tender, No Pedal Edema, Normal Capillary Refill Skin: Warm, Dry, Intact Wound/Incisions: Healing Well (no signs of hematoma, minimal swelling noted) Neurological: No New Focal Deficit Psy/Mental Status: Alert, Normal Affect, Normal Mood - Problem List & Annotations (1) SNOMED Code(s): 90186286 Code(s): Z34.90 - ENCNTR FOR SUPRVSN OF NORMAL , UNSP, UNSP TRIMESTER Status: Acute Current Visit: Yes Qualifiers: Weeks of gestation: 40 weeks Qualified Code(s): Z3A.40 - 40 weeks gestation of (2) Elective induction of labor planned SNOMED Code(s): 090486969 Code(s): VTM6140 - Status: Acute Current Visit: Yes (3) Perineal laceration SNOMED Code(s): 796829702 Code(s): S31.41XA - LACERATION W/O FOREIGN BODY OF VAGINA AND VULVA, INIT ENCNTR Status: Acute Current Visit: Yes (4) Vacuum extractor delivery, delivered SNOMED Code(s): 200127449 Code(s): O66.5 - ATTEMPTED APPLICATION OF VACUUM EXTRACTOR AND FORCEPS Status: Acute Current Visit: Yes - Problem List Review Problem List Initiated/Reviewed/Updated: Yes - My Orders Last 24 Hours: My Active Orders 12/05/16 07:30 Patient Status [ADT] Routine Communication Order [RC] ASDIRECTED May Shower [RC] ASDIRECTED Notify Provider Vital Signs [RC] PRN Notify Provider [RC] PRN Up ad [place] [RC] ASDIRECTED Calcium Carbonate [Tums] 1,000 mg PO Q2H PRN Ondansetron [Zofran] 4 mg IV Q4H PRN Sodium Chloride 0.9% [Saline Flush] 10 ml FLUSH ASDIRECTED PRN Saline Lock Insert [OM.PC] Routine Resuscitation Status Routine 12/05/16 09:58 Ambulate [RC] PER UNIT ROUTINE VTE/DVT Education [RC] Click to Edit DVT/VTE Prophylaxis Reflex [OM.PC] Routine 12/05/16 16:36 Epidural Catheter Management [OM.PC] Routine 12/05/16 17:33 Naloxone [Narcan] 0.1 mg IVPUSH Q5M PRN diphenhydrAMINE [Benadryl] 50 mg IVPUSH Q6H PRN 12/05/16 17:45 Urinary Catheter Insertion [Insert Urinary Catheter] [OM.PC] Q24H 12/05/16 21:31 Patient Status [ADT] Routine Vital Signs [RC] PFP Acetaminophen/HYDROcodone [[place] 325-5 MG] 1 tab PO Q4H PRN Benzocaine [Diqo-S-Edcefpb 20% [place]] See Dose Instructions TOP Q4H PRN Ibuprofen [Motrin Bulk Bottle] 600 mg PO Q6H PRN Lanolin [Lansinoh HPA] 1 gm TOP ASDIRECTED PRN Witch Arianne [Tucks] 1 pad TOP ASDIRECTED PRN Assess Lochia [WOMSER] Per Unit Routine Assess Uterine Involution [WOMSER] Per Unit Routine 12/05/16 21:32 Perineal Care [OM.PC] Per Unit Routine 12/05/16 22:00 Cephalexin [Keflex] 500 mg PO Q12H 12/05/16 Breakfast Regular Diet [DIET] 12/06/16 07:23 Acetaminophen [Tylenol Bulk Bottle] 0 mg PO Q4H PRN - Assessment Assessment:: 12/05/2016 25 yo G2 now P2 at 40 4/7 gestational weeks with vacuum assist times one, without complications Small 1st degree perineal laceration Labs-GBS negative, B positive, RPR nonreactive, Hep B negative, HIV negative, Rubella Immune --- 12/06/2016 day one Fundus firm and bleeding decreased Hgb-11.2 Pain well controlled with oral pain medication Laceration healing well, no signs of hematoma, minimal swelling well Plan discharge tomorrow per patient request - Plan Plan:: 12/05/2016 25 yo at 40 4/7 gestational weeks here for an elective induction SVE-2-3/50/-2 Bishops Score-6 Cytotec 50mcg placed vaginally Plan- Monitor for active labor Up and about as tolerated Intermittent Monitoring Pain management per patient request Patient may eat regular diet Anticipate and plan for a vaginal delivery 12/05/2016 Routine cares Encourage and support Monitor fundus and bleeding Keflex 500mg BID for three days for UTI Plan discharge in 24-48hrs 12/06/2016 Continue Routine Cares Continue to encourage and support Continue medications as prescribed Plan discharge tomorrow per patient request
[2016-12-06] MEDS: Cephalexin 250 MG Cap PO SCH ×2 (11:54→22:19)
--- NOTE | 2016-12-07 08:49 | PCM.PNPP ---
- General Info Date of Service: 12/07/16 Functional Status: Reports: Pain Controlled - Review of Systems General: Reports: No Symptoms HEENT: Reports: No Symptoms Pulmonary: Reports: No Symptoms Cardiovascular: Reports: No Symptoms Gastrointestinal: Reports: No Symptoms Genitourinary: Reports: No Symptoms Musculoskeletal: Reports: No Symptoms Skin: Reports: No Symptoms Neurological: Reports: No Symptoms Psychiatric: Reports: No Symptoms - General Info Date of Service: 12/07/16 - Patient Data Vital Signs - Most Recent: Last Vital Signs Temp 36.6 C 12/06/16 22:10 Pulse 84 12/06/16 22:10 Resp 16 12/06/16 22:10 BP 117/77 12/06/16 22:10 Pulse Ox 98 12/06/16 22:10 Weight - Most Recent: 75.75 kg I&O - Last 24 Hours: Intake & Output 12/06/16 12/07/16 12/07/16 22:59 06:59 14:59 Intake Total 1000 Balance 1000 Med Orders - Current: Current Medications Acetaminophen (Tylenol Bulk Bottle) 0 mg PO Q4H PRN PRN Reason: Pain Hydrocodone Bitart/Acetaminophen (Chunky 325-5 Mg) 1 tab PO Q4H PRN PRN Reason: Pain (moderate 4-6) Last Admin: 12/06/16 00:56 Dose: 1 tab Benzocaine (Ojxe-I-Adbotxw 20% Ossian) 0 gm TOP Q4H PRN PRN Reason: Perineal Comfort Measure Last Admin: 12/05/16 22:54 Dose: 1 can Calcium Carbonate/Glycine (Tums) 1,000 mg PO Q2H PRN PRN Reason: Indigestion Cephalexin (Keflex) 500 mg PO Q12H ANDRADE Stop: 12/08/16 22:00 Last Admin: 12/06/16 22:19 Dose: 500 mg Diphenhydramine HCl (Benadryl) 50 mg IVPUSH Q6H PRN PRN Reason: ITCHING Emollient Ointment (Lansinoh Hpa) 1 gm TOP ASDIRECTED PRN PRN Reason: Sore Nipples Last Admin: 12/05/16 22:54 Dose: 1 tube Ibuprofen (Motrin Bulk Bottle) 600 mg PO Q6H PRN PRN Reason: Pain Last Admin: 12/05/16 22:51 Dose: 1 bottle Naloxone HCl (Narcan) 0.1 mg IVPUSH Q5M PRN PRN Reason: IF RESP RATE LESS THAN 6 Ondansetron HCl (Zofran) 4 mg IV Q4H PRN PRN Reason: Nausea/Vomiting Sodium Chloride (Saline Flush) 10 ml FLUSH ASDIRECTED PRN PRN Reason: Keep Vein Open Witch Arianne (Tucks) 1 pad TOP ASDIRECTED PRN PRN Reason: Hemorrhoids Last Admin: 12/05/16 22:52 Dose: 1 canister Discontinued Medications Acetaminophen (Tylenol) 650 mg PO Q4H PRN PRN Reason: Pain (Mild 1-3) and fever Last Admin: 12/05/16 07:55 Dose: 650 mg Acetaminophen (Tylenol Bulk Bottle) 325 mg PO Q4H PRN PRN Reason: Pain Last Admin: 12/05/16 22:52 Dose: 1 bottle Ephedrine Sulfate (Ephedrine Sulfate) Confirm Administered Dose 50 mg .ROUTE .STK-MED ONE Stop: 12/05/16 17:13 Last Admin: 12/05/16 18:18 Dose: Not Given Ephedrine Sulfate (Ephedrine Sulfate) 5 - 10 mg IVPUSH ASDIRECTED PRN PRN Reason: IF SYSTOLIC BP LESS THAN 100 Fentanyl (Sublimaze) 100 mcg IVPUSH Q1H PRN PRN Reason: Pain (moderate 4-6) Last Admin: 12/05/16 15:08 Dose: 50 mcg Fentanyl (Sublimaze) Confirm Administered Dose 100 mcg .ROUTE .STK-MED ONE Stop: 12/05/16 13:35 Oxytocin/Sodium Chloride (Pitocin In Ns 20 Units/1,000 Ml) 20 unit in 1,000 mls @ 2,997 mls/hr IV ONETIME ONE; 999 MUNITS/MIN PRN Reason: Protocol Stop: 12/05/16 12:41 Last Admin: 12/06/16 04:51 Dose: Not Given Ropivacaine (Naropin 0.2%) Confirm Administered Dose 100 mls @ as directed .ROUTE .STK-MED ONE Stop: 12/05/16 13:35 Lactated Ringer's (Ringers, Lactated) 1,000 mls @ 999 mls/hr IV .BOLUS ONE Stop: 12/05/16 17:36 Last Admin: 12/05/16 16:35 Dose: 999 mls/hr Oxytocin/Sodium Chloride (Pitocin In Ns 20 Units/1,000 Ml) 20 unit in 1,000 mls @ 6 mls/hr IV TITRATE ANDRADE; 2 MUNITS/MIN PRN Reason: Protocol Last Titration: 12/05/16 23:40 Dose: Infused Lidocaine HCl (Xylocaine 1%) 100 ml INJECT ONETIME ONE Stop: 12/05/16 18:01 Last Admin: 12/05/16 23:19 Dose: Not Given Lidocaine HCl (Xylocaine 1%) Confirm Administered Dose 100 ml .ROUTE .STK-MED ONE Stop: 12/05/16 16:47 Last Admin: 12/05/16 17:18 Dose: Not Given Misoprostol (Cytotec) 50 mcg VAG ONETIME ONE Stop: 12/05/16 07:33 Last Admin: 12/05/16 07:45 Dose: 50 mcg Misoprostol (Cytotec) 25 mcg VAG ONETIME ONE Stop: 12/05/16 12:13 Last Admin: 12/05/16 12:15 Dose: 25 mcg Misoprostol (Cytotec) Confirm Administered Dose 25 mcg .ROUTE .STK-MED ONE Stop: 12/05/16 12:14 Last Admin: 12/05/16 12:18 Dose: Not Given - Infant Interaction Disposition, : in Room with Family Interaction: Holding Feeding: Breastfed ; Nursed Well, Continues to Breastfeed Support Person: - Recovery Exam Fundal Tone: Firm Fundal Level: 3 Fingerbreadths Below Umbilicus Fundal Placement: Midline Lochia Amount: Small Lochia Color: Rubra/Red Perineum Description: Edematous Bladder Status: Voiding Urinary Elimination: Voided Other Urinary Elimination, : due to void - Exam General: Alert, Oriented HEENT: Pupils Equal Neck: Supple Lungs: Clear to Auscultation, Normal Respiratory Effort Cardiovascular: Regular Rate, Regular Rhythm GI/Abdominal Exam: Normal Bowel Sounds, Soft, Non-Tender, No Organomegaly, No Distention, No Abnormal Bruit, No Mass, Pelvis Stable Extremities: Normal Inspection, Normal Range of Motion, Non-Tender, No Pedal Edema, Normal Capillary Refill Skin: Warm, Dry, Intact Wound/Incisions: Healing Well (minimal swelling noted, no signs of a hematoma) Neurological: No New Focal Deficit Psy/Mental Status: Alert, Normal Affect, Normal Mood - Problem List & Annotations (1) SNOMED Code(s): 31860497 Code(s): Z34.90 - ENCNTR FOR SUPRVSN OF NORMAL , UNSP, UNSP TRIMESTER Status: Acute Current Visit: Yes Qualifiers: Weeks of gestation: 40 weeks Qualified Code(s): Z3A.40 - 40 weeks gestation of (2) Elective induction of labor planned SNOMED Code(s): 980727180 Code(s): SDW0828 - Status: Acute Current Visit: Yes (3) Perineal laceration SNOMED Code(s): 354239415 Code(s): S31.41XA - LACERATION W/O FOREIGN BODY OF VAGINA AND VULVA, INIT ENCNTR Status: Acute Current Visit: Yes (4) Vacuum extractor delivery, delivered SNOMED Code(s): 652007889 Code(s): O66.5 - ATTEMPTED APPLICATION OF VACUUM EXTRACTOR AND FORCEPS Status: Acute Current Visit: Yes - Problem List Review Problem List Initiated/Reviewed/Updated: Yes - Assessment Assessment:: 12/05/2016 25 yo G2 now P2 at 40 4/7 gestational weeks with vacuum assist times one, without complications Small 1st degree perineal laceration Labs-GBS negative, B positive, RPR nonreactive, Hep B negative, HIV negative, Rubella Immune --- 12/06/2016 day one Fundus firm and bleeding decreased Hgb-11.2 Pain well controlled with oral pain medication Laceration healing well, no signs of hematoma, minimal swelling well Plan discharge tomorrow per patient request 12/07/2016 day two Fundus firm and bleeding decreased well Laceration healing well, no signs of hematoma, minimal swelling - Plan Plan:: 12/05/2016 25 yo at 40 4/7 gestational weeks here for an elective induction SVE-2-3/50/-2 Bishops Score-6 Cytotec 50mcg placed vaginally Plan- Monitor for active labor Up and about as tolerated Intermittent Monitoring Pain management per patient request Patient may eat regular diet Anticipate and plan for a vaginal delivery 12/05/2016 Routine cares Encourage and support Monitor fundus and bleeding Keflex 500mg BID for three days for UTI Plan discharge in 24-48hrs 12/06/2016 Continue Routine Cares Continue to encourage and support Continue medications as prescribed Plan discharge tomorrow per patient request 12/07/2016 Continue Routine Cares Continue to encourage and support Continue medications as prescribed Plan discharge today To see me in 6 weeks for visit
[2016-12-07] MEDS: Cephalexin 250 MG Cap PO SCH (11:39)
== END 2016-12-07 18:00 | disposition home or self-care (01) | DRG 560 ==
LOC: JP.OB 07:03 → OBSVTOIN 21:01 → JP.MS 21:50
PROVIDERS: ADMIT Advanced Practice Midwife; ATTEND Advanced Practice Midwife
PROC: 10D07Z6 Extraction of Products of Conception, Vacuum, Via Natural or Artificial Opening (ICD-10-PCS; principal; 2016-12-05)
PROC: 3E0P7VZ Introduction of Hormone into Female Reproductive, Via Natural or Artificial Opening (ICD-10-PCS; 2016-12-05)
PROC: 3E0P3VZ Introduction of Hormone into Female Reproductive, Percutaneous Approach (ICD-10-PCS; 2016-12-05)
PROC: 0HQ9XZZ Repair Perineum Skin, External Approach (ICD-10-PCS; 2016-12-05)
PROC: 00HU33Z Insertion of Infusion Device into Spinal Canal, Percutaneous Approach (ICD-10-PCS; 2016-12-05)
DX: O77.8 Labor and delivery complicated by other evidence of fetal stress (principal); O70.0 First degree perineal laceration during delivery; O66.5 Attempted application of vacuum extractor and forceps; Z3A.40 40 weeks gestation of pregnancy; Z37.0 Single live birth; O86.20 Urinary tract infection following delivery, unspecified
CPT/HCPCS: 36415; 59300; 59409; 80053; 80305; 81001; 85025; 99211; A9270-GY; J2590; J2795; J3010; J7120

== ENCOUNTER 2017-07-28 01:57 | Emergency (ER) | payer BC ==
[2017-07-28] MEDS ORDERED: Ondansetron 4 MG Tab.DIS PO ONE (02:30)
[2017-07-28] MEDS ORDERED: Ketorolac 60 MG/2 ML SDV IM ONE (02:30)
--- NOTE | 2017-07-28 02:33 | EDM.PDOC ---
ED HPI GENERAL MEDICAL PROBLEM - General Chief Complaint: Gastrointestinal Problem Stated Complaint: SINUS/COUGH/VOMITING Time Seen by Provider: 07/28/17 02:10 Source of Information: Reports: Patient, Family History Limitations: Reports: No Limitations - History of Present Illness INITIAL COMMENTS - FREE TEXT/NARRATIVE: 18-year-old female started having cold symptoms a day ago with nasal congestion and a sore throat, this evening developed a mild cough and tonight developed generalized body aches, and emesis for the past 2-3 hours. She has "never been this sick". She does not appear to have shortness of breath, she is afebrile, her vitals are stable. Onset: Gradual Severity: Moderate (Over the past 24 hours) Associated Symptoms: Reports: Cough, Headaches, Loss of Appetite, Malaise, Nausea/Vomiting. Denies: Fever/Chills, Shortness of Breath - Related Data Allergies Allergy/AdvReac Type Severity Reaction Status Date / Time No Known Allergies Allergy Verified 07/28/17 02:09 Home Meds: Home Meds Prenat Vit Comb.10/Iron/Fa/Dha [Vitafol-OB + DHA] 1 each PO DAILY 11/30/16 [ History] Sertraline [Zoloft] 1 tab PO DAILY 07/28/17 [History] Past Medical History TRA[employer]IC [employer] MAGISTRATE History: Reports: Other OB/BYN History: SHANTHI-12/01/2016 Psychiatric History: Reports: Depression - Infectious Disease History Infectious Disease History: Reports: Chicken Pox - Past Surgical History Other GI Surgeries/Procedures: lactose intolerant Social & Family History - Family History Family Medical History: Noncontributory - Tobacco Use Smoking Status *Q: Never Smoker - Caffeine Use Caffeine Use: Reports: Coffee Other Caffeine Use: 1 cup per day - Recreational Drug Use Recreational Drug Use: No ED ROS GENERAL - Review of Systems Review Of Systems: See Below Constitutional: Reports: Chills, Malaise. Denies: Fever HEENT: Reports: Rhinitis, Throat Pain Respiratory: Reports: Cough Cardiovascular: Denies: Chest Pain GI/Abdominal: Reports: Nausea, Vomiting Skin: Reports: No Symptoms Neurological: Reports: Headache Psychiatric: Reports: No Symptoms ED EXAM, GENERAL - Physical Exam Exam: See Below Exam Limited By: No Limitations General Appearance: Alert, No Apparent Distress (Appears uncomfortable but not distressed) Ears: Normal TMs Throat/Mouth: Normal Inspection Head: Atraumatic Respiratory/Chest: No Respiratory Distress, Lungs Clear Cardiovascular: Regular Rate, Rhythm Neurological: Alert, Oriented Psychiatric: Normal Affect, Normal Mood Skin Exam: Warm, Dry Course - Vital Signs Last Recorded V/S: Last Vital Signs Temp 97.0 F 07/28/17 02:11 Pulse 101 H 07/28/17 02:11 Resp 18 07/28/17 02:11 BP 131/85 07/28/17 02:11 Pulse Ox 95 07/28/17 02:11 - Orders/Labs/Meds Meds: Medications Discontinued Medications Generic Name Dose Route Start Last Admin Trade Name Giorgio PRN Reason Stop Dose Admin Ketorolac Tromethamine 60 mg 07/28/17 02:30 07/28/17 02:35 Toradol IM 07/28/17 02:31 60 mg ONETIME ONE Administration Ondansetron HCl 4 mg 07/28/17 02:30 07/28/17 02:35 Zofran Odt PO 07/28/17 02:31 4 mg ONETIME ONE Administration - Re-Assessments/Exams Free Text/Narrative Re-Assessment/Exam: 07/28/17 02:32 Patient was given 4 mg of sublingual Zofran and 60 mg of IM Toradol. I explained to the patient this is very likely viral and may worsen with antibiotic treatment. She will continue with anti-inflammatories and Zofran and recheck in 24-48 hours if worsening. Departure - Departure Time of Disposition: 03:01 Disposition: Home, Self-Care 01 Condition: Fair Clinical Impression: Viral syndrome - Discharge Information Instructions: Viral Illness, Adult Referrals: PCP,None [Primary Care Provider] - Forms: ED Department Discharge Care Plan Goals: Rest, fluids, use Zofran for nausea or vomiting and a regular anti-inflammatory such as ibuprofen or naproxen should help with body aches. Return if worsening, especially difficulty breathing or persistent vomiting.
== END 2017-07-28 03:02 | disposition home or self-care (01) ==
LOC: JP.ED 01:57
DX: B34.9 Viral infection, unspecified (principal); Z79.899 Other long term (current) drug therapy
CPT/HCPCS: 96372; 99283; A9270; J1885

== ENCOUNTER 2021-06-08 00:19 | Emergency (ER) | payer BC ==
[2021-06-08] MEDS ORDERED: Promethazine 25 MG Tab PO ONE (00:51)
[2021-06-08] MEDS ORDERED: Promethazine 12.5 MG in Sodium Chloride 0.9% 50 ML IV ONE (00:55)
[2021-06-08] MEDS: Lactated Ringers 1,000 ML IV ONE ×2 (01:11→02:11)
[2021-06-08] MEDS: Metoclopramide 10 MG/2 ML SDV IV ONE (01:15)
[2021-06-08] MEDS: Sodium Chloride 0.9% 10 ML Syringe FLUSH PRN (01:16)
== END 2021-06-08 03:35 | disposition home or self-care (01) ==
LOC: JP.ED 00:19
DX: K52.9 Noninfective gastroenteritis and colitis, unspecified (principal); R11.2 Nausea with vomiting, unspecified; E86.0 Dehydration
CPT/HCPCS: 36415; 80053; 81001; 81025; 83690; 85025; 96374; 99283; 99284-25; J2765; J3490; J7120

== ENCOUNTER 2022-11-14 03:25 | Emergency (ER) | payer BC ==
[2022-11-14] MEDS ORDERED: Prochlorperazine 10 MG/2 ML SDV IM ONE (03:45)
[2022-11-14] MEDS ORDERED: Sodium Chloride 0.9% 1,000 ML IV ONE (03:46)
[2022-11-14] MEDS ORDERED: Ketorolac 15 MG/ML SDV IVPUSH ONE (03:46)
[2022-11-14 04:02] LABS: BASOPHILS ABSOLUTE AUTO 0.04 K/uL (0.00-0.10); BASOPHILS PERCENT AUTO 0.5 % (0.1-1.3); EOSINOPHILS ABSOLUTE AUTO 0.56 K/uL (0.00-0.40); EOSINOPHILS PERCENT AUTO 7.4 % (0.0-5.4); HEMATOCRIT 38.2 % (34.3-46.0); HEMOGLOBIN 13.1 g/dL (11.2-15.5); IMMATURE GRAN PERCENT AUTO 0.1 % (0.0-0.7); LYMPHOCYTES ABSOLUTE AUTO 2.28 K/uL (0.8-3.3); LYMPHOCYTES PERCENT AUTO 30.2 % (11.4-47.7); MEAN CORPUSCULAR HEMOGLOBIN 27.9 pg (31.6-35.5); MEAN CORPUSCULAR HGB CONC 34.3 g/dL (31.6-35.5); MEAN CORPUSCULAR VOLUME 81.3 fL (81.4-99.0); MONOCYTES PERCENT AUTO 6.6 % (3.3-12.6); NEUTROPHILS ABSOLUTE AUTO 4.15 K/uL (1.0-7.6); NEUTROPHILS PERCENT AUTO 55.2 % (40.0-78.1); PLATELET COUNT,PLT 220 K/uL (130-375); WHITE BLOOD CELL COUNT,WBC 7.5 K/uL (3.2-11.0)
[2022-11-14 04:03] LABS: IMMATURE GRAN ABSOLUTE AUTO 0.01 K/uL (0.00-0.23)
[2022-11-14] MEDS ORDERED: Prochlorperazine 10 MG/2 ML SDV IVPUSH ONE (04:14)
[2022-11-14 04:30] LABS: A/G RATIO 1.1 (1.2-2.2); ALANINE AMINOTRANSFERASE,ALT 23 U/L (12-78); ALKALINE PHOSPHATASE 51 U/L (46-116); ASPARTATE AMNIOTRANSFERASE,AST 19 U/L (15-37); BILIRUBIN TOTAL 0.4 mg/dL (0.2-1.0); BLOOD UREA NITROGEN,BUN 22 mg/dL (7-18); CALCIUM 8.8 mg/dL (8.5-10.1); CARBON DIOXIDE,CO2 27 mmol/L (21-32); CHLORIDE,CL 101 mmol/L (100-108); CREATININE 0.7 mg/dL (0.6-1.0); ESTIMATED GFR 117 mL/min (>60); GLUCOSE RANDOM 99 mg/dL (74-106); POTASSIUM,K 3.9 mmol/L (3.6-5.2); PROTEIN TOTAL,TP 7.7 g/dL (6.4-8.2); SODIUM,NA 138 mmol/L (140-148)
[2022-11-14 04:32] LABS: ANION GAP 13.9 mmol/L (5.0-14.0)
[2022-11-14] MEDS ORDERED: oxyCODONE 5 MG Tab PO ONE (04:32)
[2022-11-14 04:33] LABS: TROPONIN I HIGH SENSITIVITY < 4.0 pg/mL (<=60.3)
[2022-11-14] MEDS ORDERED: Alum Hydrox/Mag Hydrox/Simeth 15 ML, Lidocaine 2% 15 ML PO ONE ×2 (04:47)
== END 2022-11-14 05:52 | disposition home or self-care (01) ==
LOC: JP.ED 03:25
DX: G43.909 Migraine, unspecified, not intractable, without status migrainosus (principal)
CPT/HCPCS: 36415; 80053; 83690; 84484; 85025; 93005; 96374; 96375; 99285; A9270; J0780; J1885; J7030